=== PATIENT | male | born 1980 | race Caucasian/White ===

== ENCOUNTER 2018-09-30 15:09 | Emergency (ER) | payer OTHER ==
[2018-09-30] MEDS ORDERED: KETOROLAC 30 MG/ML INJ ONE (15:33)
[2018-09-30 15:42] LABS: Absolute Lymphocytes (CBC) 1.4 K/uL (0.7-4.9); Absolute Monocytes 0.4 K/uL (0.1-1.3); Absolute Neutrophil 2.9 K/uL (1.8-8.0); Basophils % 1.1 % (0-1.3); Eosinophils % 2.3 % (0-4.4); Hematocrit 44.5 % (39.6-49.0); Lymphocytes % 28.5 % (15.3-44.8); MCH 27.9 pg (27.0-35.0); MCV 82.7 fL (80-100); MPV 6.9 fL (7.6-11.3); Monocytes % 8.8 % (3.3-12.3); RBC Red Blood Cell Count 5.39 M/uL (4.33-5.43)
[2018-09-30 15:55] LABS: Albumin 4.1 g/dL (3.4-5.0); Bilirubin Direct 0.1 mg/dL (0-0.2); Bilirubin Total 0.4 mg/dL (0.2-1.0); Potassium 4.1 mmol/L (3.5-5.1); Protein, Total 7.5 g/dL (6.4-8.2)
--- NOTE | 2018-09-30 15:57 | RAD REPORT ---
EXAM DESCRIPTION: CT - Stone Protocol - 09/30/2018 3:38 pm CLINICAL HISTORY: Right flank pain COMPARISON: None. TECHNIQUE: Axial 5 mm thick images were obtained without oral or IV contrast. The [id number] span s the entirety of the system partially obscuring uppermost abdomen and lung bases. All CT scans are performed using dose optimization technique as appropriate and may include automated exposure control or mA/KV adjustment according to patient size. FINDINGS: Mild right-sided hydronephrosis is present secondary to a right mid ureter 6 mm calcificat ion. On a KUB projection the stone will be along the inferior margin of the L4 right transverse proce ss. No left-sided hydronephrosis. Patient has additional bilateral 1-6 mm caliceal calculi. No suspic ious renal masses. Isodense masses and pyelonephritis are not excluded on a stone protocol CT scan. N o urinary bladder suspicious finding. No adrenal abnormality. Imaged portions of the liver, spleen and pancreas show no suspicious findings on non-contrast imaging . No gallbladder or biliary tree abnormality identified. No significant adrenal finding. No suspicious bowel findings. Patient has diverticulosis in the left colon but no diverticulitis. Minimal fat only umbilical hernia. No free air or free fluid. No inflammatory stranding. No significant bony abnormality. IMPRESSION: Mild right-sided hydronephrosis secondary to a 6 mm mid right ureter calculus. Isodense masses and pyelonephritis are not excluded on stone protocol technique. On a KUB projection the stone is positioned along the inferior margin L4 right transverse process.
[2018-09-30 16:46] LABS: Urine Blood 3+ (NEG); Urine Glucose NEGATIVE (NEG); Urine Protein 1+ (NEG)
[2018-09-30] MEDS ORDERED: TAMSULOSIN 0.4 MG SR CAP ONE (17:09)
--- NOTE | 2018-09-30 17:38 | ER ---
Nurse's Notes [facility] Name: Tre Briseno Age: 37 yrs Sex: Male : 1980 Arrival Date: 09/30/2018 Time: 15:12 Bed 28 Private MD: Diagnosis: Hydronephrosis with renal and ureteral calculous obstruction Presentation: 09/30 15:14 Presenting complaint: Patient states: Right flank pain today, denies vomiting. History la1 of 3 kidney stones, states pain is similar. Transition of care: patient was not received from another setting of care. Onset of symptoms was September 30, 2018. Risk Assessment: Do you want to hurt yourself or someone else? Patient reports no desire to harm self or others. Initial Sepsis Screen: Does the patient meet any 2 criteria? No. Patient's initial sepsis screen is negative. Does the patient have a suspected source of infection? No. Patient's initial sepsis screen is negative. Care prior to arrival: None. 15:14 Method Of Arrival: Ambulatory la1 15:14 Acuity: MADAN 3 la1 Historical: - Allergies: 15:15 No Known Allergies; la1 - PMHx: 15:15 None; la1 - Immunization history:: Adult Immunizations up to date. - Social history:: Smoking status: Patient/guardian denies using tobacco. - Ebola Screening: : No symptoms or risks identified at this time. Screenin:39 Abuse screen: Denies threats or abuse. Denies injuries from another. Nutritional rv screening: No deficits noted. Tuberculosis screening: No symptoms or risk factors identified. Fall Risk None identified. Assessment: 16:38 General: Appears in no apparent distress. comfortable, Behavior is calm, cooperative. rv Pain: Denies pain. Neuro: Level of Consciousness is awake, alert, obeys commands, Oriented to person, place, time, situation. Cardiovascular: Capillary refill < 3 seconds. Respiratory: Reports. GI: Bowel sounds present X 4 quads. Abd is soft and non tender X 4 quads. : No signs and/or symptoms were reported regarding the genitourinary system. EENT: No signs and/or symptoms were reported regarding the EENT system. Derm: Skin is intact. Musculoskeletal: No signs and/or symptoms reported regarding the musculoskeletal system. 17:29 Reassessment: Patient and/or family updated on plan of care and expected duration. Pain tl3 level reassessed. Patient is alert, oriented x 3, equal unlabored respirations, skin warm/dry/pink. discussed results with pt and that the provider would be in shortly to discuss POC. 17:50 Reassessment: Patient appears in no apparent distress at this time. Patient and/or iw family updated on plan of care and expected duration. Pain level reassessed. Patient is alert, oriented x 3, equal unlabored respirations, skin warm/dry/pink. Patient states feeling better. Vital Signs: 15:15 BP 124 / 80; Pulse 84; Resp 16; Temp 98.7; Pulse Ox 98% on R/A; Weight 81.65 kg; Height la1 5 ft. 10 in. (177.80 cm); 16:39 BP 106 / 76; Pulse 84; Resp 16; Pulse Ox 97% on R/A; rv 17:29 BP 119 / 80; Pulse 77; Resp 18; Pulse Ox 96% on R/A; tl3 15:15 Body Mass Index 25.83 (81.65 kg, 177.80 cm) la1 ED Course: 15:12 Patient arrived in ED. mr 15:15 Triage completed. la1 15:15 Arm band placed on right wrist. la1 15:31 Inserted saline lock: 20 gauge in right antecubital area, using aseptic technique. la1 Blood collected. 15:36 Alejandrina Figueroa FNP-C is PHCP. snw 15:36 Steven Sevilla MD is Attending Physician. snw 15:[address] In Process Unspecified. EDMS 16:39 Patient has correct armband on for positive identification. Bed in low position. Call rv light in reach. Side rails up X 1. Adult w/ patient. Pulse ox on. NIBP on. 18:02 No provider procedures requiring assistance completed. IV discontinued, intact, tl3 bleeding controlled, No redness/swelling at site. Pressure dressing applied. Administered Medications: 15:31 Drug: TORadol 30 mg Route: IVP; Site: right antecubital; la1 16:43 Follow up: Response: Pain is decreased rv 17:04 Drug: Flomax 0.4 mg Route: PO; rv 17:29 Follow up: Response: No adverse reaction tl3 17:46 Drug: fentaNYL (PF) 25 mcg Route: IVP; Site: right antecubital; 18:01 Follow up: Response: Medication administered at discharge. tl3 Outcome: 17:37 Discharge ordered by MD. lilly 18:02 Discharged to home ambulatory. tl3 18:02 Condition: stable 18:02 Discharge instructions given to patient, family, Instructed on discharge instructions, follow up and referral plans. medication usage, Demonstrated understanding of instructions, follow-up care, medications, Prescriptions given X 4. 18:03 Patient left the ED. tl3 Signatures: Dispatcher [employer] EDMS Alejandrina Figueroa, DIRECTOR ON AIR-C DIRECTOR ON AIR-CsnIsela Corley Cora Fishman, RN RN iw Nathan Canales RN RN la1 Hoa Jacobo, RN RN tl3 Mehdi Leal, RN RN rv
--- NOTE | 2018-09-30 17:38 | EDPHYS ---
Physician Documentation [facility] Name: Tre Briseno Age: 37 yrs Sex: Male : 1980 Arrival Date: 09/30/2018 Time: 15:12 Bed 28 Private MD: ED Physician Steven Sevilla HPI: 09/30 17:57 This 37 yrs old Male presents to ER via Ambulatory with complaints of snw Possible Kidney Stone. 17:57 Onset: The symptoms/episode began/occurred suddenly. Associated signs and symptoms: snw Pertinent positives: hx of kidney stones, Pertinent negatives: fever. Modifying factors: The patient symptoms are alleviated by nothing. The patient has experienced similar episodes in the past, several times. The patient has not recently seen a physician. Historical: - Allergies: 15:15 No Known Allergies; la1 - PMHx: 15:15 None; la1 - Immunization history:: Adult Immunizations up to date. - Social history:: Smoking status: Patient/guardian denies using tobacco. - Ebola Screening: : No symptoms or risks identified at this time. ROS: 17:56 Constitutional: Negative for fever, chills, and weight loss, Eyes: Negative for injury, snw pain, redness, and discharge, ENT: Negative for injury, pain, and discharge, Neck: Negative for injury, pain, and swelling, Cardiovascular: Negative for chest pain, palpitations, and edema, Respiratory: Negative for shortness of breath, cough, wheezing, and pleuritic chest pain. 17:56 MS/Extremity: Negative for injury and deformity, Skin: Negative for injury, rash, and discoloration, Neuro: Negative for headache, weakness, numbness, tingling, and seizure. 17:56 Abdomen/GI: Positive for nausea. 17:56 Back: Positive for flank pain, on the right. 17:56 : Positive for hematuria. Exam: 17:55 Constitutional: This is a well developed, well nourished patient who is awake, alert, snw and in no acute distress. Head/Face: Normocephalic, atraumatic. Eyes: Pupils equal round and reactive to light, extra-ocular motions intact. Lids and lashes normal. Conjunctiva and sclera are non-icteric and not injected. Cornea within normal limits. Periorbital areas with no swelling, redness, or edema. ENT: Nares patent. No nasal discharge, no septal abnormalities noted. Tympanic membranes are normal and external auditory canals are clear. Oropharynx with no redness, swelling, or masses, exudates, or evidence of obstruction, uvula midline. Mucous membranes moist. Neck: Trachea midline, no thyromegaly or masses palpated, and no cervical lymphadenopathy. Supple, full range of motion without nuchal rigidity, or vertebral point tenderness. No Meningismus. Chest/axilla: Normal chest wall appearance and motion. Nontender with no deformity. No lesions are appreciated. Cardiovascular: Regular rate and rhythm with a normal S1 and S2. No gallops, murmurs, or rubs. Normal PMI, no JVD. No pulse deficits. Respiratory: Lungs have equal breath sounds bilaterally, clear to auscultation and percussion. No rales, rhonchi or wheezes noted. No increased work of breathing, no retractions or nasal flaring. Abdomen/GI: Soft, non-tender, with normal bowel sounds. No distension or tympany. No guarding or rebound. No evidence of tenderness throughout. Skin: Warm, dry with normal turgor. Normal color with no rashes, no lesions, and no evidence of cellulitis. MS/ Extremity: Pulses equal, no cyanosis. Neurovascular intact. Full, normal range of motion. Neuro: Awake and alert, GCS 15, oriented to person, place, time, and situation. Cranial nerves II-XII grossly intact. Motor strength 5/5 in all extremities. Sensory grossly intact. Cerebellar exam normal. Normal gait. Psych: Awake, alert, with orientation to person, place and time. Behavior, mood, and affect are within normal limits. 17:55 Back: pain, that is moderate, of the right mid back, ROM is normal, normal spinal alignment noted, CVA tenderness, that is mild. Vital Signs: 15:15 BP 124 / 80; Pulse 84; Resp 16; Temp 98.7; Pulse Ox 98% on R/A; Weight 81.65 kg; Height la1 5 ft. 10 in. (177.80 cm); 16:39 BP 106 / 76; Pulse 84; Resp 16; Pulse Ox 97% on R/A; rv 17:29 BP 119 / 80; Pulse 77; Resp 18; Pulse Ox 96% on R/A; tl3 15:15 Body Mass Index 25.83 (81.65 kg, 177.80 cm) la1 MDM: 17:25 Patient medically screened. snw 17:56 Data reviewed: vital signs, nurses notes, lab test result(s). Counseling: I had a snw detailed discussion with the patient and/or guardian regarding: the historical points, exam findings, and any diagnostic results supporting the discharge/admit diagnosis, the presence of at least one elevated blood pressure reading (>120/80) during this emergency department visit, lab results, radiology results, the need for outpatient follow up, to return to the emergency department if symptoms worsen or persist or if there are any questions or concerns that arise at home. Response to treatment: the patient's symptoms have resolved after treatment, patient is well hydrated. and as a result, I will discharge patient. Special discussion: I have referred the patient to see his PCP for further evaluation of high blood pressure. Based on the history and exam findings, there is no indication for further emergent testing or inpatient evaluation. I discussed with the patient/guardian the need to see the primary care provider for further evaluation of the symptoms. I discussed with the patient/guardian the need to see the urologist for further evaluation of the symptoms. 09/30 15:24 Order name: Basic Metabolic Panel; Complete Time: 16:57 la09/30 15:24 Order name: CBC with Diff; Complete Time: 16:57 la09/30 16:57 Interpretation: LYM% 28.5. snw 09/30 15:24 Order name: Hepatic Function; Complete Time: 16:57 [facility] 09/30 15:24 Order name: Lipase; Complete Time: 16:57 la1 09/30 15:27 Order name: Stone Protocol CT; Complete Time: 16:57 la09/30 16:40 Order name: Urine Dipstick--Ancillary (enter results); Complete Time: 16:57 eb 09/30 15:24 Order name: IV Saline Lock; Complete Time: 16:03 la09/30 15:24 Order name: Labs collected and sent; Complete Time: 16:03 la1 Administered Medications: 15:31 Drug: TORadol 30 mg Route: IVP; Site: right antecubital; la1 16:43 Follow up: Response: Pain is decreased rv 17:04 Drug: Flomax 0.4 mg Route: PO; rv 17:29 Follow up: Response: No adverse reaction tl3 17:46 Drug: fentaNYL (PF) 25 mcg Route: IVP; Site: right antecubital; iw 18:01 Follow up: Response: Medication administered at discharge. tl3 Disposition: 18:19 Co-signature as Attending Physician, Steven Sevilla MD I agree with the assessment and kdr plan of care. Disposition: 09/30/18 17:37 Discharged to Home. Impression: Hydronephrosis with renal and ureteral calculous obstruction. - Condition is Stable. - Discharge Instructions: Kidney Stones, Hydronephrosis, Dietary Guidelines to Help Prevent Kidney Stones. - Prescriptions for Tylenol- Codeine #3 300-30 mg Oral Tablet - take 2 tablets by ORAL route every 6 hours As needed; 16 tablet. Zofran 4 mg Oral Tablet - take 1 tablet by ORAL route every 12 hours As needed; 20 tablet. Flomax 0.4 mg Oral Capsule, Sust. Release 24 hr - take 1 capsule by ORAL route once daily 1/2 hour following the same meal each day; 30 capsule. Diclofenac Sodium 75 mg Oral Tablet Sustained Release - take 1 tablet by ORAL route 2 times per day; 30 tablet. - Medication Reconciliation Form, Thank You Letter, Antibiotic Education, Prescription Opioid Use, Work release form form. - Follow up: Private Physician; When: 2 - 3 days; Reason: Recheck today's complaints, Continuance of care, Re-evaluation by your physician. Follow up: Emergency Department; When: As needed; Reason: Worsening of condition. Signatures: Dispatcher [employer] EDGA Steven Sevilla MD MD [facility] Alejandrina Figueroa, KATYA-C ENVIRONMENTAL CONTROL ADMINISTRATOR-Cora Meraz, RN RN iw Nathan Canales, RN RN la1 Hoa Jacobo, RN RN tl3 Mehdi Leal, RN RN rv Corrections: (The following items were deleted from the chart) 18:03 17:37 09/30/2018 17:37 Discharged to Home. Impression: Hydronephrosis with renal and tl3 ureteral calculous obstruction. Condition is Stable. Forms are Medication Reconciliation Form, Thank You Letter, Antibiotic Education, Prescription Opioid Use. Follow up: Private Physician; When: 2 - 3 days; Reason: Recheck today's complaints, Continuance of care, Re-evaluation by your physician. Follow up: Emergency Department; When: As needed; Reason: Worsening of condition. snw
[2018-09-30] MEDS ORDERED: FENTANYL CITR 100 MCG/2 ML ONE (17:50)
== END 2018-09-30 18:03 | disposition home or self-care (01) ==
LOC: ER 15:09
DX: N13.2 Hydronephrosis with renal and ureteral calculous obstruction (principal)
CPT/HCPCS: 36415; 74176; 76377; 80048; 80076; 81003; 83690; 85025; 96374; 96375; 99284; J3010